=== PATIENT | female | born 1950 | race Caucasian/White ===

== ENCOUNTER → 2016-07-21 | Outpatient (CLI) | payer OTHER, BC ==
[~2016-07-21] MED LIST: CLR10 PO
[2016-07-21 08:30] VITALS: BP 123/78; PULSE 93; TEMP 36.6; O2SAT 99
--- NOTE | 2016-07-21 09:58 | Radiation Oncology Follow-Up ---
Radiation Oncology Follow-Up Date of Visit Jul 21, 2016. (Muna Beatty PA-C) Reason For Visit One-month follow-up (Muna Beatty PA-C) Radiation Completion Date Hypofractionated - 06/23/15 (Muna Beatty PA-C) Diagnosis (1) Rectal cancer Onset Date: 01/25/2016 Stage: IV Permanent Comment: STAGING: Rectum, adenocarcinoma, [id number], stage IV with oligometastatic disease to the liver TREATMENT: 1. Chemotherapy - 4 cycles FOLFOX - Dr. Garsia - Last Dose - 05/15/2016 2. Status post completion of hypo-fractionated radiation therapy. Completed received 2500 cGy in 5 fractions. 3. Status post low anterior resection and resection of hepatic metastatic lesions 06/30/2016 Stage ypT3 ypN0 M1 Last Edited By: Muna Beatty on Jul 21, 2016 09:38 ( Muna Beatty PA-C) History of Present Illness Ms. Olmedo is a 65-year-old female who presented to her PCP on January 02 for routine physical. At that time the patient stated that she had noted intermittent blood in her stools for a couple of years. Patient was scheduled to see Dr. Arellano on 01/25/2016. She performed a screening for a colorectal malignant neoplasm with a colonoscopy. Her perineal and digital rectal exam were unremarkable. There was normal sphincter tone and no palpable rectal lesions. A frond-like villous nonobstructing mass was noted extending from 5-15 cm proximal to the anus. The mass was partially circumferential (involving one half of the lumen circumference). Biopsies were taken. A retroflexed view of the distal rectum and anal verge was normal. This biopsy confirmed an invasive adenocarcinoma arising from a tubulovillous adenoma. Patient underwent a CT scan of the abdomen and pelvis 01/26/2016. In the liver there was an irregularly marginated hypodensity inferiorly in the right lobe really measuring 1.1 x 1.2 x 1.4 cm. This was of concern for a possible metastatic lesion. It could represent a small hemangioma. In the left rectosigmoid region a 2.9 x 4.1 cm mass extending craniocaudally for approximately 9 cm. The fat around this mass is mildly indurated with numerous diverticular present in the mid sigmoid colon. There were small prominent lymph nodes noted in the pelvis with 1 cm lymph node in the obturator region. Degenerative changes are noted in the spine and hips and the left iliac wing with an 8 mm sclerotic nodule of uncertain significance. CT scan of the chest on 02/10/2016. This showed nonspecific mild prominent right upper paratracheal mediastinal lymph node measuring 0.8 x 1.0 cm. Mildly prominent left axillary lymph nodes were nonspecific measuring up to 1.4 x 1.1 cm. In the spleen a hypo-attenuated lesions are noted. With nonspecific mildly prominent upper abdominal lymph nodes. There is a nonspecific focal sclerotic density in the T8 vertebral body otherwise unremarkable. Patient underwent a lower EUS on 02/11/2016. This confirmed a fungating and ulcerated partially obstructing lesion found in the rectosigmoid colon. The mass was partially circumferential involving two thirds of the lumen circumference. The mass measured 6 cm in length. No lymph nodes were seen in the perirectal region and in the left iliac region. A hypoechoic mass was found in the rectum at the junction of the rectum and the sigmoid colon. The mass was encountered at 8 cm from the anal verge. The mass was partially circumferential involving 60% of the lumen. The endosonographic borders were irregular. The mass measured 2.7 cm in maximal width and 1.1 cm in maximal thickness and was 6 cm in length. There was sonographic evidence suggesting breakthrough of the muscularis propria with invasion into the zen-rectal fat. This was therefore ultrasonically staged as auT3 N0 lesion. On February 13 patient underwent an MRI of the liver. The segment 5 liver lesions did not demonstrate typical features of a hemangioma and was worrisome for a neoplastic process. Further assessment was recommended. The splenic lesion seen on previous study was felt to be indeterminate with additional follow-up recommended. On 02/15/2016 patient underwent a bone scan without evidence of bony metastatic disease. The patient is scheduled for a PET/CT scan this afternoon and an MRI of the pelvis this coming Sunday. She is scheduled to see Dr. Dr. Bernardo Garsia this February 24. The patient is also been seen by Dr. Guthrie to discuss the surgical treatment options. The recommendation is for consideration of neoadjuvant chemoradiation at this time pending the results of the PET scan and MRI of the pelvis. She initially underwent systemic chemotherapy with FOLFOX for 4 cycles. She then underwent neoadjuvant radiation chemotherapy. Chemotherapy comprised of Xeloda. Radiation was given in a hypo-fractionated fashion. An was completed 2015. She received 5 fractions of therapy. (Muna Beatty PA-C) Interim History Following completion of the neoadjuvant radiation chemotherapy she will return to [facility] and underwent a low anterior resection. There was resection of the metastatic lesions to the liver. She also had a temporary colostomy. Since her surgery she is still recovering and doing well. She denies any abdominal discomfort. She does have a slight dysuria that occurs when she voids a small amount. She does not have dysuria on a regular basis. She denies any external perineal discomforts. She is seen Dr. Garsia today in follow- up to discuss her recommendations for postop chemotherapy. She is concerned about possible side effects to treatment. She is not having any problems with the ostomy appliance. (Muna Beatty PA-C) Allergies Coded Allergies: Penicillins (Verified Allergy, Unknown, Rash, 02/23/16) Home Medications Scheduled PRN Loratadine (Claritin), 10 MG PO DAILY PRN for Nasal Congestion Review of Systems Gastrointestinal: Symptoms: Indigestion GI Comments: Ileostomy - Indigestion since having gallbladder removed - getting better Oral: Symptoms: No Problems Respiratory: Symptoms: WNL Urinary: Symptoms: WNL Comments: Burning slightly - better since finishing antibiotic for UTI Skin: Symptoms: No Problems (Muna Beatty PA-C) Physical Exam Vital Signs Date Time Temp Pulse Resp B/P Pulse Ox O2 Delivery O2 Flow Rate FiO2 07/21/16 08:30 36.6 93 16 123/78 99 Fatigue: None General Appearance: no apparent distress Eyes: normal inspection, EOMI ENT: normal ENT inspection, hearing grossly normal Neck: no adenopathy, thyroid normal Respiratory/Chest: lungs clear, no respiratory distress, no accessory muscle use Cardiovascular: regular rate, rhythm, no gallop, no murmur Abdomen: non tender, soft, no organomegaly, + pertinent finding (ostomy in the right lower quadrant area. Well-healed incision. There are no signs of infection. Mild irritation of the skin at the clips sites.) Extremities: no pedal edema Neurologic/Psychiatric: no motor/sensory deficits, alert, normal mood/affect (Muna Beatty PA-C) Laboratory Studies Name: KOBE OLMEDO (AGE) Sex: 1950 (65) F Billing #: [id number] MRN (Client MRN): [id number] Order #: [id number] Client Information Specimen Information Location: DISCHARGE Collected Date: 06/30/2016 Copy To: Cheng Ozuna [facility] Accession Date: 06/30/2016 Client Case #: Outside Client.: Reported Date: 07/03/2016 Report Type: Final Report Submitting: - Alex Nettles MD Procedures/Addenda Present SURGICAL PATHOLOGY DIAGNOSIS Electronically Signed Out: Jovani Larios MD - [facility] [place] Lab A. Sigmoid colon and rectum, resection: Invasive moderately differentiated adenocarcinoma arising from a tubulovillous adenoma, with invasion into the serosa (T3N0M1). Surgical margins are negative for dysplasia or carcinoma. Thirteen benign lymph nodes (0/13). One tubular adenoma. B. Anastomotic rings: Portions of colon, no significant pathologic findings. C. Gallbladder, cholecystectomy: Chronic cholecystitis and cholelithiasis. No evidence of dysplasia or carcinoma. D. Segment 5 liver mass, resection: Metastatic colonic adenocarcinoma (1.7 cm in greatest dimension). Adenocarcinoma extends to within 2 mm of the inked surgical margin. Focal steatosis (5% to 10%) The inked surgical margin is negative for carcinoma. E. Segment 6-7 liver mass 2 lesions, resection: Metastatic colonic adenocarcinoma (1.2 x 0.9 cm and 1.2 x 1.1 cm in greatest dimension for each). The inked surgical margin is negative for adenocarcinoma. Focal steatosis (5% to 10%). F. Additional segment 6-7 liver mass, resection: Metastatic colonic adenocarcinoma (0.9 cm in greatest dimension). The inked surgical margin is positive for adenocarcinoma. Specimen: Sigmoid colon Rectum Procedure: Other: Sigmoid colon and portion of rectum Tumor Site: Rectum Tumor Location: Tumor Location- Tumor is located entirely above peritoneal reflection Tumor Size: Greatest dimension: 3.2 cm Additional dimensions: 2.0x0.5 cm Macroscopic Tumor Perforation: Not identified Histologic Type: Adenocarcinoma Histologic Grade: Low-grade (well-differentiated to moderately differentiated) Intratumoral Lymphocytic Response: Mild to moderate (0-2 per high-power [X400] field) Peritumor Lymphocytic Response: Mild to moderate Tumor Subtype and Differentiation: Mucinous tumor component: 0 % Microscopic Tumor Extension: Tumor invades through the muscularis propria into the subserosal adipose tissue or the nonperitonealized pericolic or perirectal soft tissues but does not extend to the serosal surface Margins: If all margins uninvolved by invasive carcinoma - Distance of invasive carcinoma from closest margin: 15 mm Distal Margin - Uninvolved by invasive carcinoma Circumferential (Radial) Margin - Uninvolved by invasive carcinoma Mesenteric Margin - Uninvolved by invasive carcinoma Treatment Effect: Not known Lymph-Vascular Invasion: Not identified Perineural Invasion: Not identified Tumor Deposits: Not identified Type of Polyp in which Invasive Carcinoma Arose: Tubulovillous adenoma Primary Tumor (pT): pT3: Tumor invades through the muscularis propria into the subserosa or the nonperitonealized pericolic or perirectal soft tissues Regional Lymph Nodes (pN): pN0: No regional lymph node metastasis Number of lymph nodes examined: 13 Number of lymph nodes involved: 0 Distant Metastasis (pM): Site(s): Liver Additional Pathologic Findings: Adenoma(s) [This staging is based on AJCC cancer staging manual, 7th edition] Table1. Summary of Immunostaining Results Marker/Tissue Adenocarcinoma Normal Tissue MLH-1 Positive Positive PMS-2 Positive Positive MSH-2 Positive Positive MSH-6 Positive Positive Result: Positive for KRAS gene mutation p.G12V (Muna Beatty PA-C) Assessment & Plan Plan: She has an appointment to see Dr. Garsia this afternoon. (Muna Beatty PA-C) Ms. Olmedo is a 65-year-old female with oligometastatic rectal cancer to the liver. She was treated with initially with chemotherapy and had a good response to treatment and elected for short course radiation therapy followed by a TME/resection of the liver metastasis which was recently completed on 06/30. Overall, her pathology results were favorable and she had a good response in the rectum; however, there was noted to be a microscopic positive margin from 1 of the liver metastases that was excised. I will plan to speak with both surgery and medical oncology to finalize a treatment plan for the patient given her previous history and pathologic results from her surgical resection. The patient will be seen Bernardo Garsia for medical oncology today to discuss further chemotherapy. The patient will come back in 6 months for follow -up evaluation unless there is a need for further adjuvant radiation therapy and this decision will be determined after I have a discussion with both her surgical oncologist and medical oncologist. The patient will call me with any further questions or concerns or if she would like to be seen earlier. I agree with note created by Muna Beatty PA-C. I reviewed the patient's chart and information with her. I have examined and evaluated the patient. I reviewed relevant clinical information and answered the patient's and/or family' s questions. (Veeral. Graves MD) Total Time In Follow-Up I spent 25 minutes speaking to the patient performing examination. I spent 15 minutes reviewing information and complaining this note. AMK (Muna Beatty PA-C) I spent 25 minutes examining and counseling the patient. (Veeral. Graves MD) Copy To Alex Nettles M.D.; Niles Stovall MD; Bernardo Garsia MD; Cheng Guthrie M.D.
== END | disposition home or self-care (01) ==
LOC: C.ONC 08:59
PROVIDERS: ATTEND Radiology Radiation Oncology
DX: Z08 Encounter for follow-up examination after completed treatment for malignant neoplasm (principal); Z92.3 Personal history of irradiation; Z85.048 Personal history of other malignant neoplasm of rectum, rectosigmoid junction, and anus

== ENCOUNTER → 2016-08-21 | Outpatient (CLI) | payer OTHER, BC ==
--- NOTE | 2016-08-21 16:37 | MAMMOGRAPHY REPORT ---
BILATERAL DIGITAL SCREENING MAMMOGRAM WITH CAD: 08/21/2016 CLINICAL HISTORY: Routine screening. Patient has no complaints. TECHNIQUE: Current study was also evaluated with a Computer Aided Detection (CAD) system. COMPARISON: Comparison is made to exams dated: 08/10/2014 mammogram, 08/07/2013 mammogram, 08/06/2012 jad mogram, 07/01/2009 mammogram, 08/28/2000 mammogram, and 08/18/2015 mammogram - [facility] nter. BREAST COMPOSITION: There are scattered areas of fibroglandular density in both breasts. FINDINGS: The parenchymal pattern is unchanged. No developing mass, architectural distortion or clu ster of suspicious microcalcifications is seen in either breast. IMPRESSION: ACR BI-RADS CATEGORY 2: BENIGN There is no mammographic evidence of malignancy. A 1 year screening mammogram is recommended. The p atient will receive written notification of the results. Approximately 10% of breast cancers are not detected with mammography. A negative mammographic repor t should not delay biopsy if a clinically suggestive mass is present. Kenyetta Bateman M.D. ay/:08/21/2016 15:24:24 Plastic Panel Installer: Caro Shetty [facility] letter sent: Normal 1/2 BI-RADS Code: ACR BI-RADS Category 2: Benign
== END | disposition home or self-care (01) ==
LOC: C.MAMM 10:45
PROVIDERS: ATTEND Obstetrics & Gynecology
DX: Z12.31 Encounter for screening mammogram for malignant neoplasm of breast (principal)

== ENCOUNTER → 2016-09-01 | Outpatient (CLI) | payer OTHER, BC ==
--- NOTE | 2016-09-01 11:26 | DIAGNOSTIC IMAGING REPORT ---
SINGLE CONTRAST GASTROGRAFIN ENEMA CLINICAL HISTORY: Rectal carcinoma status post resection with colocolonic anastomosis and diverting colostomy. Preoperative assessment for colostomy takedown. COMPARISON STUDY: Abdominal CT dated 01/26/2016. PROCEDURE: An abdominal equipment cleaner radiograph is performed. A rectal tube was placed. Gastrografin was then infused into the colon under gravity. Fluoroscopic images were acquired in multiple obliquities. Overhead radiographs were obtained both pre and post void. FINDINGS: An abdominal equipment cleaner radiograph shows a nonobstructed abdominal bowel gas pattern. A colostomy projects over the right lower quadrant. Suture material is noted in the right upper quadrant and pelvis. There are calcified pelvic phleboliths. No evidence of intraperitoneal free air is seen. The skeletal structures are osteopenic. Mild lumbosacral spondylosis is observed. The bony pelvis appears intact. On the enema images, there is foreshortening of the rectosigmoid colon consistent with surgical resection and anastomosis. There is no evidence of stricture/narrowing. Moderate diverticulosis is noted. There is no extraluminal contrast identified to suggest leakage. The remainder of the colon is normal in morphology. Fluoroscopy time: 0.5 minutes. IMPRESSION: 1. Findings are consistent with rectosigmoid resection with colocolonic anastomosis. There is no evidence of stricture or contrast leakage at the anastomotic site. 2. Moderate diverticulosis of the sigmoid colon is observed. Dictated: 09/01/2016 11:14 AM Transcribed: 09/01/2016 11:25 AM [facility] Electronically signed by: Saroj Louie M.D. 09/01/2016 11:29 AM Dictated Date/Time: 09/01/2016 11:14 AM
== END | disposition home or self-care (01) ==
LOC: C.RAD 10:07
PROVIDERS: ATTEND Colon & Rectal Surgery
DX: K57.30 Diverticulosis of large intestine without perforation or abscess without bleeding (principal); Z85.048 Personal history of other malignant neoplasm of rectum, rectosigmoid junction, and anus

== ENCOUNTER → 2017-01-18 | Outpatient (CLI) | payer OTHER, BC ==
[2017-01-18 13:45] VITALS: BP 151/83; PULSE 84; TEMP 36.9; O2SAT 97
--- NOTE | 2017-01-18 14:49 | Radiation Oncology Follow-Up ---
Radiation Oncology Follow-Up Date of Visit Jan 18, 2017. Reason For Visit 6 month follow-up Radiation Completion Date Hypo - 06/23/15 Diagnosis (1) Rectal cancer Status: Resolved Onset Date: 01/25/2016 Histology Subtype: adenocarcinoma Stage: IV Permanent Comment: STAGING: Rectum, adenocarcinoma, [id number], stage IV with oligometastatic disease to the liver TREATMENT: 1. Chemotherapy - 4 cycles FOLFOX - Dr. Garsia - Last Dose - 05/15/2016 2. Status post completion of hypo-fractionated radiation therapy. Completed received 2500 cGy in 5 fractions. 3. Status post low anterior resection and resection of hepatic metastatic lesions 06/30/2016 Stage ypT3 ypN0 M1 4. Status post 4 cycles of FOLFIRI completed 12/04/2016 4. Status post ostomy reversal. Last Edited By: Muna Beatty on Jan 18, 2017 14:48 History of Present Illness Ms. Grove is a 66-year-old female who presented to her PCP on January 02 for routine physical. At that time the patient stated that she had noted intermittent blood in her stools for a couple of years. Patient was scheduled to see Dr. Arellano on 01/25/2016. She performed a screening for a colorectal malignant neoplasm with a colonoscopy. Her perineal and digital rectal exam were unremarkable. There was normal sphincter tone and no palpable rectal lesions. A frond-like villous nonobstructing mass was noted extending from 5-15 cm proximal to the anus. The mass was partially circumferential (involving one half of the lumen circumference). Biopsies were taken. A retroflexed view of the distal rectum and anal verge was normal. This biopsy confirmed an invasive adenocarcinoma arising from a tubulovillous adenoma. Patient underwent a CT scan of the abdomen and pelvis 01/26/2016. In the liver there was an irregularly marginated hypodensity inferiorly in the right lobe really measuring 1.1 x 1.2 x 1.4 cm. This was of concern for a possible metastatic lesion. It could represent a small hemangioma. In the left rectosigmoid region a 2.9 x 4.1 cm mass extending craniocaudally for approximately 9 cm. The fat around this mass is mildly indurated with numerous diverticular present in the mid sigmoid colon. There were small prominent lymph nodes noted in the pelvis with 1 cm lymph node in the obturator region. Degenerative changes are noted in the spine and hips and the left iliac wing with an 8 mm sclerotic nodule of uncertain significance. CT scan of the chest on 02/10/2016. This showed nonspecific mild prominent right upper paratracheal mediastinal lymph node measuring 0.8 x 1.0 cm. Mildly prominent left axillary lymph nodes were nonspecific measuring up to 1.4 x 1.1 cm. In the spleen a hypo-attenuated lesions are noted. With nonspecific mildly prominent upper abdominal lymph nodes. There is a nonspecific focal sclerotic density in the T8 vertebral body otherwise unremarkable. Patient underwent a lower EUS on 02/11/2016. This confirmed a fungating and ulcerated partially obstructing lesion found in the rectosigmoid colon. The mass was partially circumferential involving two thirds of the lumen circumference. The mass measured 6 cm in length. No lymph nodes were seen in the perirectal region and in the left iliac region. A hypoechoic mass was found in the rectum at the junction of the rectum and the sigmoid colon. The mass was encountered at 8 cm from the anal verge. The mass was partially circumferential involving 60% of the lumen. The endosonographic borders were irregular. The mass measured 2.7 cm in maximal width and 1.1 cm in maximal thickness and was 6 cm in length. There was sonographic evidence suggesting breakthrough of the muscularis propria with invasion into the zen-rectal fat. This was therefore ultrasonically staged as auT3 N0 lesion. On February 13 patient underwent an MRI of the liver. The segment 5 liver lesions did not demonstrate typical features of a hemangioma and was worrisome for a neoplastic process. Further assessment was recommended. The splenic lesion seen on previous study was felt to be indeterminate with additional follow-up recommended. On 02/15/2016 patient underwent a bone scan without evidence of bony metastatic disease. The patient is scheduled for a PET/CT scan this afternoon and an MRI of the pelvis this coming Sunday. She is scheduled to see Dr. Dr. Bernardo Garsia this February 24. The patient is also been seen by Dr. Guthrie to discuss the surgical treatment options. The recommendation is for consideration of neoadjuvant chemoradiation at this time pending the results of the PET scan and MRI of the pelvis. She initially underwent systemic chemotherapy with FOLFOX for 4 cycles. She then underwent neoadjuvant radiation chemotherapy. Chemotherapy comprised of Xeloda. Radiation was given in a hypo-fractionated fashion. An was completed 2015. She received 5 fractions of therapy. Interim History She has been doing well over the past 6 months. She underwent the ostomy reversal. She denied difficulty with the procedure. She does note that her bowels seem to be of a "sticky consistency". She notices that at times she will have a bowel movement with urination and did not note that she was having a bowel movement. This is neither constipation or diarrhea. She has no difficulty with nausea or vomiting. She completed 4 cycles of full ferry. It was suggested that she have 8 but due to side effects she completed 4 cycles. She is followed by her colorectal surgeon. It was recommended that she have a colonoscopy 1 year following the procedure. She has had recheck laboratory studies through Dr. Graves's office in medical oncology. Allergies Coded Allergies: Penicillins (Verified Allergy, Unknown, Rash, 02/23/16) Home Medications Scheduled PRN Loratadine (Claritin), 10 MG PO DAILY PRN for Nasal Congestion Review of Systems Gastrointestinal: Symptoms: WNL GI Comments: Bowel movements are not predictable Oral: Symptoms: No Problems Respiratory: Symptoms: WNL Urinary: Symptoms: WNL Comments: Burning slightly - better since finishing antibiotic for UTI Skin: Symptoms: No Problems Physical Exam Vital Signs Date Time Temp Pulse Resp B/P (MAP) Pulse Ox O2 Delivery O2 Flow Rate FiO2 01/18/17 13:45 36.9 84 16 151/83 97 Fatigue: None General Appearance: no apparent distress Eyes: normal inspection, EOMI ENT: normal ENT inspection, hearing grossly normal Neck: no adenopathy, thyroid normal Respiratory/Chest: lungs clear, no respiratory distress, no accessory muscle use Cardiovascular: regular rate, rhythm, no gallop, no murmur Abdomen: non tender, soft, no organomegaly Extremities: no pedal edema Neurologic/Psychiatric: no motor/sensory deficits, alert, normal mood/affect Skin: warm/dry Lymphatic: no adenopathy Assessment & Plan Plan: She'll be seeing Dr. Graves in medical oncology in March. Recheck labs and scanning per his recommendations. The colorectal surgery recommended a colonoscopy in one year. I suggested the addition of probiotic to help with the consistency of the bowel. She can eat yogurt or activitia. I also suggested increasing fiber in her diet. She did not care for Metamucil or Citrucel. I suggested that she try fiber wafers or cookies. We also discussed Kegel exercises to help improve tone. We asked her to return to our office in 1 year. Total Time In Follow-Up I spent 20 minutes speaking to the patient performing examination. I spent 15 minutes reviewing information in completing this note. [place] Copy To Alex Nettles M.D.; Niles Stovall MD; Cheng Guthrie M.D.; Waldemar Graves M.D.
== END | disposition home or self-care (01) ==
LOC: C.ONC 13:40
PROVIDERS: ATTEND Physician Assistant Medical
DX: Z08 Encounter for follow-up examination after completed treatment for malignant neoplasm (principal); Z92.3 Personal history of irradiation; Z85.048 Personal history of other malignant neoplasm of rectum, rectosigmoid junction, and anus

== ENCOUNTER → 2017-08-22 | Outpatient (CLI) | payer OTHER, BC ==
--- NOTE | 2017-08-22 14:13 | MAMMOGRAPHY REPORT ---
BILATERAL DIGITAL SCREENING MAMMOGRAM TOMOSYNTHESIS WITH CAD: 08/22/2017 CLINICAL HISTORY: Routine screening. Patient has no complaints. TECHNIQUE: Breast tomosynthesis in addition to standard 2D mammography was performed. Current study was also evaluated with a Computer Aided Detection (CAD) system. COMPARISON: Comparison is made to exams dated: 08/18/2015 mammogram, 08/21/2016 mammogram, 08/10/2014 ma mmogram, 08/06/2012 mammogram, 08/07/2013 mammogram, and 07/05/2011 mammogram - [facility] BREAST COMPOSITION: There are scattered areas of fibroglandular density in both breasts. FINDINGS: No suspicious masses, calcifications, or areas of architectural distortion are noted in ei ther breast. There has been no significant interval change compared to prior exams. IMPRESSION: ACR BI-RADS CATEGORY 1: NEGATIVE There is no mammographic evidence of malignancy. A 1 year screening mammogram is recommended. The pa tient will receive written notification of the results. Approximately 10% of breast cancers are not detected with mammography. A negative mammographic report should not delay biopsy if a clinically suggestive mass is present. Yas Villafuerte M.D. ah/:08/22/2017 11:29:14 Fixed Wing Pilot: Caro FOUNTAIN(Mary)(M), [facility] letter sent: Normal 1/2 BI-RADS Code: ACR BI-RADS Category 1: Negative
== END | disposition home or self-care (01) ==
LOC: C.MAMM 09:55
PROVIDERS: ATTEND Obstetrics & Gynecology
DX: Z12.31 Encounter for screening mammogram for malignant neoplasm of breast (principal)

== ENCOUNTER 2019-10-30 05:07 | Inpatient (IN) ==
--- OUTSIDE RECORDS SUMMARY | 2019-10-30 05:09 | External Medical Summary | Continuity of Care Document ---
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 Refills: 0 Procedures History of Section Status: Comp leted History of Tonsillectomy With Adenoidectomy Status: Completed History of Dilation And Curettage Status : Completed History of Fiberoptic Examinations Hysteroscopy Status: Completed History of Laparoscopy (Diagnostic) Gynecologic With Biopsy Status: Completed Immunizations Immunizations not documented Family History Mother Family history of Asthma (V17.5) Status: Active Grandmother Family history of Asthma (V17.5) Status: Active Social History - Smoking Status Never smoked tobacco Plan of Treatment Planned Observations Planned Goals not documented Results No Known Results Results not documented
--- OUTSIDE RECORDS SUMMARY | 2019-10-30 05:10 | External Medical Summary | Continuity of Care Document ---
:1950 Author Name Con Singh, Provider Address Unavailable Unavailable , Care Team Providers Name Role Phone Unavailable Unavailable Unavailable Problems Asymptomatic Postmenopausal Status (V49.81) Encounter for routine gynecological examination (V72.31) (Z0 1.419) Earache on left (388.70) (H92.02) Pulsatile tinnitus [...]
[2019-10-30] MEDS ORDERED: ONDANSETRON INJ 2 MG/ML 2 ML VIAL IV STA ×2 (05:27→06:10)
[2019-10-30] MEDS ORDERED: MoRPHine SULFATE 10 MG/ML CARP/VIAL IV STA (05:27)
[2019-10-30] MEDS ORDERED: SODIUM CHLORIDE 0.9% 1000ML 1,000 ML IV ONE (05:27)
[2019-10-30] MEDS ORDERED: MoRPHine SULFATE 2 MG/ML CARP ONE (05:30)
[2019-10-30] MEDS ORDERED: MoRPHine SULFATE 4 MG/ML 1 ML CARP\\VIAL ONE (05:30)
--- NOTE | 2019-10-30 05:33 | Emergency Department Note ---
History of Present Illness General Chief complaint: Abdominal Pain Stated complaint: STOMACH CRAMPS,VOMITING Time Seen by Provider: 10/30/19 05:16 Source: patient Mode of arrival: ambulatory Limitations: no limitations History of Present Illness Maximum Pain Intensity: 9 This patient is a 69-year-old female who presents to the emergency department for evaluation of abdominal pain and vomiting. Patient reports that yesterday morning, she started with some mild abdominal cramping. She states that she was able to eat without any difficulty and tried some Imodium which did not help. She states that throughout the day, her symptoms worsened and the pain became more severe. She reports that last night before bed, she started vomiting and had multiple episodes of vomiting throughout the night. She states that despite the vomiting, she is still having severe abdominal cramping. She states the pain is across the center of her abdomen and rates her discomfort a 9/10. She states that nothing makes the pain better or worse. She has tried ibuprofen and Imodium without any change in her symptoms. She does report she is currently taking an antibiotic for dental infection. Her last bowel movement was yes terday morning. She denies any changes in her bowel movements. She denies any urinary symptoms or fevers. Patient has a history of colorectal cancer and had surgery to remove this about 3 years ago. She had an ostomy which was later reversed. She states that she has been followed for this and has had no signs of recurrent malignancy. Home Medications Home Medications Medication Instructions Recorded Confirmed Type Antibiotic Drug 1 cap PO TID 10/30/19 10/30/19 History Allergies Allergy/AdvReac Type Severity Reaction Status Date / Time Penicillins Allergy Unknown Rash Verified 10/30/19 05:33 Past Med/Surg History Medical History Rectal cancer (Resolved 01/25/16) "STAGING: Rectum, adenocarcinoma, [id number], stage IV with oligometastatic dis ease to the liver TREATMENT: 1. Chemotherapy - 4 cycles FOLFOX - Dr. Garsia - Last Dose - 05/15/2016 2. Status post completion of hypo-fractionated radiation therapy. Completed 06/23/2015 received 2500 cGy in 5 fractions. 3. Status post low anterior resection and resection of hepatic metastatic lesions 06/30/2016 Stage ypT3 ypN0 M1 4. Status post 4 cycles of FOLFIRI completed 12/04/2016 4. Status post ostomy reversal." On 07/21/16 09:38 Muna Beatty wrote "STAGING: Rectum, adenocarcinoma, [id number], stage IV with oligometastatic disease to the liver TREATMENT: 1. Chemotherapy - 4 cycles FOLFOX - Dr. Garsia - Last Dose - 05/15/2016 2. Status post completion of hypo-fractionated radiation therapy. Completed 06/23/2015 received 2500 cGy in 5 fractions. 3. Status post low anterior resection and resection of hepatic metastatic lesions 06/30/2016 Stage ypT3 ypN0 M1" On 06/30/16 11:59 Muna Beatty wrote "STAGING: Rectum, adenocarcinoma, [id number], stage IV with oligometastatic disease to the liver TREATMENT: 1. Chemotherapy - 4 cycles FOLFOX - Dr. Garsia - Last Dose - 05/15/2016 2. Status post completion of hypo-fractionated radiation therapy. Completed 06/23/2015 received 2500 cGy in 5 fractions." On 06/09/16 14:44 Haris Star wrote "STAGING: Rectum, adenocarcinoma, [id number], stage IV with oligometastatic disease to the liver TREATMENT: 1. Chemotherapy - 4 cycles FOLFOX - Dr. Garsia - Dose - 05/15/2016 " Surgical History History of section S/P colon resection Social History Preferred Language: Croatian Communication Ability: Effective Beliefs That Will Affect Care: None Current Living Situation: Spouse Other Information That Helps Us Care for You: No Feels Safe at Home: Yes Safety Concerns: Feels Safe At This Time Smoking Status: Never smoker Hx Alcohol Use: Yes Alcohol type: wine Hx Substance Use: No Review of Systems A total of 10 systems reviewed and were otherwise negative Physical Exam Vital Signs Vital Signs - 24 hr 10/30/19 05:10 10/30/19 05:33 10/30/19 05:56 Temperature 36.6 C Temperature Source Oral Pulse Rate 69 Pulse Rate [Finger] 68 Respiratory Rate 18 14 Respiratory Effort / Characteristics Non-Labored Non-Labored Spontaneous Respiratory Depth Normal Normal Respiratory Pattern Blood Pressure 183/79 H Blood Pressure [Right Arm] 177/84 H Blood Pressure Mean 113 Blood Pressure Mean [Right Arm] 115 Pulse Oximetry 100 98 Oxygen Delivery Method Room Air Room Air Room Air Sepsis Recent Fever Within 48 Hours No Sepsis New/Unexplained Change in Mental Status No Sepsis Action Taken by Nursing No Action Required 10/30/19 07:22 Temperature Temperature Source Pulse Rate Pulse Rate [Finger] 106 H Respiratory Rate 20 Respiratory Effort / Characteristics Non-Labored Spontaneous Respiratory Depth Normal Respiratory Pattern Regular Blood Pressure Blood Pressure [Right Arm] 165/97 H Blood Pressure Mean Blood Pressure Mean [Right Arm] 119 Pulse Oximetry 97 Oxygen Delivery Method Room Air Sepsis Recent Fever Within 48 Hours Sepsis New/Unexplained Change in Mental Status Sepsis Action Taken by Nursing VITALS: Vitals are noted on the nurse's note and reviewed by myself. GENERAL: This is a 69-year-old female, lying supine in bed, uncomfortable appearing, well-developed well-nourished. SKIN: The skin was without rashes. Skin is warm and dry. EARS: External auditory canals clear, tympanic membranes pearly garsia without erythema or effusion bilaterally. EYES: Pupils equal round and reactive to light and accommodation. No scleral icterus. MOUTH: Mucous membranes moist. Tonsils are not enlarged. Pharynx without erythema or exudate. NECK: Supple without nuchal rigidity. No lymphadenopathy. HEART: Regular rate and rhythm without murmurs gallops or rubs. LUNGS: Clear to auscultation bilaterally without wheezes, rales or rhonchi. No retractions or accessory muscle use. ABDOMEN: Positive bowel sounds x 4. Surgical scars noted to the midline both above and below the umbilicus. Additional surgical scar noted in the right lower quadrant. Abdomen is soft and nondistended. There is moderate tenderness to palpation throughout the mid abdomen. No guarding or rebound tenderness. NEURO: Patient was alert and oriented to person place and time. Course Reevaluation(s) Reevaluation #1: Patient was reevaluated and feels quite a bit better after the morphine and Zofran, but still has some slight nausea. An additional dose of Zofran was ordered. Reevaluation #2: Patient was reevaluated and findings discussed. NG tube was ordered and will be placed by nursing staff. Reevaluation #3: NG tube was placed and tolerated well by patient. Consultations Consultation #1: Dr. Matta - general surgery Dr. Matta recommended hospitalist admission and will consult on the patient. Administered Medications Ioversol (Optiray 320 100ml) 100 ml IV ONCE PRN PRN Reason: Interaction Checking Stop: 11/03/19 06:33 Last Admin: 10/30/19 06:35 Dose: 93 ml Documented by: [id number] Discontinued Medications Sodium Chloride (Nss 1000ml) 1,000 mls @ 999 mls/hr IV .Q1H1M ONE Stop: 10/30/19 06:27 Last Infusion: 10/30/19 07:04 Dose: 0 mls/hr Documented by: [id number] Admin: 10/30/19 05:53 Dose: 999 mls/hr Documented by: [id number] Morphine Sulfate (Morphine Sulfate) 6 mg IV NOW STA Stop: 10/30/19 05:28 Last Admin: 10/30/19 05:55 Dose: 6 mg Documented by: [id number] Morphine Sulfate (Morphine Sulfate) Confirm Administered Dose 4 mg .ROUTE .STK- MED ONE Stop: 10/30/19 05:31 Last Admin: 10/30/19 05:55 Dose: Not Given Documented by: [id number] Morphine Sulfate (Morphine Sulfate) Confirm Administered Dose 2 mg .ROUTE .STK- MED ONE Stop: 10/30/19 05:31 Last Admin: 10/30/19 05:55 Dose: Not Given Documented by: [id number] Ondansetron HCl (Zofran) 4 mg IV NOW STA Stop: 10/30/19 05:28 Last Admin: 10/30/19 05:53 Dose: 4 mg Documented by: [id number] Ondansetron HCl (Zofran) 4 mg IV NOW STA Stop: 10/30/19 06:11 Last Admin: 10/30/19 06:14 Dose: 4 mg Documented by: [id number] Medical Decision Making Differential Diagnosis Appendicitis, ovarian cyst, ovarian torsion, ectopic , TOA, PID, infections, diverticulitis, UTI, obstruction, mesenteric ischemia, aortic pathology, inflammatory bowel disease, renal colic, PUD, pancreatitis, biliary pathology, hernia, volvulus, constipation, as well as other pathologies. Medical Records Attestation: I reviewed the patient's medical records. Home Medications Current Medication List: was personally reviewed by me Laboratory Data Attestation: I reviewed the patient's lab results. Result diagrams: 10/30/19 05:51 10/30/19 05:51 Lab Results 10/30/19 10/30/19 10/30/19 Range/Units 05:20 05:51 05:51 WBC 16.06 H (4.8-10.8) K/uL RBC 5.32 (4.2-5.4) M/uL Hgb 16.0 (12.0-16.0) g/dL Hct 47.7 H (37-47) % MCV 89.7 (80-100) fL MCH 30.1 (25-34) pg MCHC 33.5 (32-36) g/dL RDW Std Deviation 42.9 (36.4-46.3) fL RDW Coeff of Joel 13.1 (11.5-14.5) % Plt Count 192 (130-400) K/uL MPV 10.6 H (7.4-10.4) fL Immature Gran % (Auto) 0.2 % Neut % (Auto) 92.0 % Lymph % (Auto) 4.9 % [place] % (Auto) 2.7 % Eos % (Auto) 0.1 % Baso % (Auto) 0.1 % Immature Gran # (Auto) 0.03 H (0.00-0.02) K/uL Neut # (Auto) 14.78 H (1.4-6.5) K/uL Lymph # (Auto) 0.79 L (1.2-3.4) K/uL [place] # (Auto) 0.44 (0.11-0.59) K/uL Eos # (Auto) 0.01 (0-0.5) K/uL Baso # (Auto) 0.01 (0-0.2) K/uL Sodium 136 (136-145) mmol/L Potassium 3.6 (3.5-5.1) mmol/L Chloride 101 (98-107) mmol/L Carbon Dioxide 25 (21-32) mmol/L Anion Gap 10.0 (3-11) BUN 20 H (7-18) mg/dl Creatinine 0.95 (0.6-1.2) mg/dl Est Cr Clr Drug Dosing 60.4 ml/min Est GFR ( Amer) 70.8 Est GFR (Non-Af Amer) 61.1 BUN/Creatinine Ratio 21.4 H (10-20) Glucose 179 H (70-99) mg/dl Calcium 9.4 (8.5-10.1) mg/dl Total Bilirubin 0.9 (0.2-1) mg/dl AST 39 H (15-37) U/L ALT 44 (12-78) U/L Alkaline Phosphatase 90 (45-117) U/L Total Protein 8.8 H (6.4-8.2) gm/dl Albumin 4.2 (3.4-5.0) gm/dl Globulin 4.6 H (2.5-4.0) gm/dl Albumin/Globulin Ratio 0.9 (0.9-2) Lipase 45 L (73-393) U/L Urine Color Dark Yellow Urine Appearance Cloudy A (Clear) Urine pH 5.5 (4.5-7.5) Ur Specific [place] 1.034 H (1.000-1.030) Urine Protein 2+ H (Negative) Urine Glucose (UA) 2+ H (Negative) Urine Ketones 3+ H (Negative) Urine Blood 3+ H (Negative) Urine Nitrite Negative (Negative) Urine Bilirubin Negative (Negative) Urine Urobilinogen Negative (Negative) Ur Leukocyte Esterase Negative (Negative) Urine WBC (Auto) 1-5 (0-5) /hpf Urine RBC (Auto) >30 H (0-4) /hpf U Hyaline Cast (Auto) 1-5 (0-5) /lpf U Epithel Cells (Auto) >30 H (0-5) /lpf Urine Bacteria (Auto) Negative (Negative) Imaging Data Attestation: I personally reviewed and interpreted this imaging study as follows: Radiologist's Impression: CT OF THE ABDOMEN AND PELVIS WITH CONTRAST CLINICAL HISTORY: Abdominal pain and vomiting. History of colon cancer. COMPARISON STUDY: MRI of the abdomen February 14, 2016. PET/CT February 23, 2016. TECHNIQUE: Following IV administration of 93 mL of Optiray-320, axial images of the abdomen and pelvis were obtained from the lung bases to the proximal femurs. Images were reviewed in the axial, sagittal, and coronal planes. IV contrast was administered without complication. Automated exposure control was utilized for the study. A dose lowering technique was utilized adhering to the principles of ALARA. CT DOSE: 940.92 mGycm FINDINGS: Lung bases are unremarkable. No pneumatosis, free air or portal venous gas is present. Partial right hepatectomy is noted. Note is made of a 3.5 x 3.1 cm right hepatic dome mixed attenuation lesion. This is probably hyperdense and contains calcifications. A small hiatal hernia is present. The spleen, adrenal glands, kidneys and pancreas are unremarkable. Slight prominence of the common bile duct is likely related to cholecystectomy. There is no peripancreatic infiltration. There is no hydronephrosis. The majority of the small bowel is moderately dilated and fluid-filled. There is a transition point within the right lower quadrant, within the distal ileum shown on axial image 335 of 436. There is stool within the upstream small bowel. This is adjacent to a small bowel anastomosis. There is a small amount of ascites. There is mild mesenteric infiltration. The terminal ileum is decompressed. A few prominent ileocolic lymph nodes are noted. These measure up to 7 mm in short axis diameter. No suspicious osseous lesions are present. Postoperative findings at the rectosigmoid junction are noted. IMPRESSION: 1. Findings consistent with a moderate grade small bowel obstruction with transition point within the right lower quadrant, within the distal ileum. Transition point in close proximity to an anastomosis. This may reflect an anastomotic stricture. Small amount of ascites and mild mesenteric infiltration. Mild gastric distention with a small hiatal hernia. 2. 3.5 x 3.1 cm right hepatic dome partially calcified lesion. This may reflect a treated metastasis and correlation with more recent post therapy imaging is recommended. In the absence of recent prior exams, short-term imaging follow-up is recommended. A few prominent ileocolic lymph nodes can be assessed on follow- up imaging. Blood Pressure Blood Pressure Findings: Elevated blood pressure Blood Pressure Disposition: further management by hospitalist BRANDYN Banks Continuous equipment monitor phototypesetting: Order was placed for continuous equipment monitor phototypesetting. Patient was placed on the equipment monitor phototypesetting. Patient was noted to be in normal sinus rhythm at an initial rate of 69 bpm. The patient is a 69-year-old female who presents today complaining of abdominal pain and vomiting. Labs revealed a leukocytosis of 16,000, no anemia or concerning electrolyte abnormality. Glucose is elevated, likely stress related. CT of the abdomen/pelvis was performed and showed a small bowel obstruction with transition point in the right lower quadrant. There is a right hepatic dome lesion which is partially calcified and according to the patient's history, this is likely a treated metastasis. Patient was given IV morphine, fluids and Zofran with good improvement of her symptoms. NG tube was placed by nursing staff. General surgery was consulted. They recommended [facility] Impression & Plan Small bowel obstruction Discharge Plan Visit Data Chief Complaint: Abdominal Pain Stated Complaint: STOMACH CRAMPS,VOMITING ED Provider: Vandana Clarke ED Midlevel Provider: Najma Medley Discharge Problem: Small bowel obstruction Forms Stand Alone Forms: [facility] Prescriptions Prescriptions: No Action Antibiotic Drug 1 cap PO TID RF: 0
[2019-10-30 05:42] LABS: Appearance Urine Cloudy (Clear); Bacteria Urine Automated Negative (Negative); Blood Urine 3+ (Negative); Color Urine Dark Yellow; Epithelial Cell Urine Auto >30 /lpf (0-5); Glucose Urine UA 2+ (Negative); Ketones Urine 3+ (Negative); Leukocyte Esterase Urine Negative (Negative); Nitrite Urine Negative (Negative); Protein Urine 2+ (Negative); RBC Urine Automated >30 /hpf (0-4); Specific Gravity Urine 1.034 (1.000-1.030); Urobilinogen Urine Negative (Negative); pH Urine 5.5 (4.5-7.5)
[2019-10-30 05:46] LABS: Bilirubin Urine Negative (Negative); Ictotest Urine Negative (Negative)
[2019-10-30 05:59] LABS: Basophils # (auto) 0.01 K/uL (0-0.2); Basophils % (auto) 0.1 %; Eosinophils # (auto) 0.01 K/uL (0-0.5); Eosinophils % (auto) 0.1 %; Hematocrit (blood only) 47.7 % (37-47); Immature Granulocytes # (auto) 0.03 K/uL (0.00-0.02); Immature Granulocytes % (auto) 0.2 %; Lymphocytes # (auto) 0.79 K/uL (1.2-3.4); Lymphocytes % (auto) 4.9 %; Mean Corpuscular Hemoglobin 30.1 pg (25-34); Mean Corpuscular Hgb Conc 33.5 g/dL (32-36); Mean Corpuscular Volume 89.7 fL (80-100); Mean Platelet Volume 10.6 fL (7.4-10.4); Monocytes # (auto) 0.44 K/uL (0.11-0.59); Monocytes % (auto) 2.7 %; Neutrophils # (auto) 14.78 K/uL (1.4-6.5); Platelet Count 192 K/uL (130-400); RDW Coefficient of Variation 13.1 % (11.5-14.5); RDW Standard Deviation 42.9 fL (36.4-46.3); Red Blood Count 5.32 M/uL (4.2-5.4); White Blood Count 16.06 K/uL (4.8-10.8)
[2019-10-30 06:16] LABS: Albumin Level 4.2 gm/dl (3.4-5.0); BUN Creatinine Ratio 21.4 (10-20); Calcium 9.4 mg/dl (8.5-10.1); Creatinine Clr Calc Pharmacy 60.4 ml/min; Est GFR (African American) 70.8; Est GFR (Non-African American) 61.1; Potassium 3.6 mmol/L (3.5-5.1)
[2019-10-30 06:18] LABS: Albumin Globulin Ratio 0.9 (0.9-2); Bilirubin,Total 0.9 mg/dl (0.2-1); Globulin 4.6 gm/dl (2.5-4.0); Total Protein 8.8 gm/dl (6.4-8.2)
[2019-10-30] MEDS ORDERED: IOVERSOL 100ml IV PRN (06:34)
--- NOTE | 2019-10-30 06:49 | CT Scan Report ---
CT OF THE ABDOMEN AND PELVIS WITH CONTRAST CLINICAL HISTORY: Abdominal pain and vomiting. History of colon cancer. COMPARISON STUDY: MRI of the abdomen February 14, 2016. PET/CT February 23, 2016. TECHNIQUE: Following IV administration of 93 mL of Optiray-320, axial images of the abdomen and pelvi s were obtained from the lung bases to the proximal femurs. Images were reviewed in the axial, sagitt al, and coronal planes. IV contrast was administered without complication. Automated exposure contro l was utilized for the study. A dose lowering technique was utilized adhering to the principles of A HUBERT. CT DOSE: 940.92 mGycm FINDINGS: Lung bases are unremarkable. No pneumatosis, free air or portal venous gas is present. Part ial right hepatectomy is noted. Note is made of a 3.5 x 3.1 cm right hepatic dome mixed attenuation l esion. This is probably hyperdense and contains calcifications. A small hiatal hernia is present. The spleen, adrenal glands, kidneys and pancreas are unremarkable. Slight prominence of the common bile duct is likely related to cholecystectomy. There is no peripancreatic infiltration. There is no hydro nephrosis. The majority of the small bowel is moderately dilated and fluid-filled. There is a transit ion point within the right lower quadrant, within the distal ileum shown on axial image 335 of 436. T here is stool within the upstream small bowel. This is adjacent to a small bowel anastomosis. There i s a small amount of ascites. There is mild mesenteric infiltration. The terminal ileum is decompresse d. A few prominent ileocolic lymph nodes are noted. These measure up to 7 mm in short axis diameter. No suspicious osseous lesions are present. Postoperative findings at the rectosigmoid junction are no yelena. IMPRESSION: 1. Findings consistent with a moderate grade small bowel obstruction with transition point within the right lower quadrant, within the distal ileum. Transition point in close proximity to an anastomosis . This may reflect an anastomotic stricture. Small amount of ascites and mild mesenteric infiltration . Mild gastric distention with a small hiatal hernia. 2. 3.5 x 3.1 cm right hepatic dome partially calcified lesion. This may reflect a treated metastasis and correlation with more recent post therapy imaging is recommended. In the absence of recent prior exams, short-term imaging follow-up is recommended. A few prominent ileocolic lymph nodes can be asse ssed on follow-up imaging. ACT 112: Negative or not required by law. Electronically signed by: Duc Mao M.D. 10/30/2019 6:48 AM
--- NOTE | 2019-10-30 07:04 | Emergency Department Note ---
ED Visit Note I saw this patient in conjunction with Najma Medley PA-C. The patient has a history of rectal carcinoma with resection. She presents to the emergency department with significant abdominal pain. CT scan shows evidence of a small bowel obstruction. On physical exam, the patient is now much more comfortable although abdomen is still significantly distended. She has moderate tenderness with palpation. Nursing staff is preparing to place an NG tube. .
--- NOTE | 2019-10-30 07:50 | XRay Report ---
XR KUB/Abdomen 1 view CLINICAL HISTORY: check ng placement tube position COMPARISON STUDY: No previous studies for comparison. FINDINGS: Nasogastric tube within the gastric fundus. Nonobstructive bowel pattern. Contrast-filled u rinary tracts from prior contrast study. IMPRESSION: Nasogastric tube within the gastric fundus. ACT 112: Negative or not required by law. The above report was generated using voice recognition software. It may contain grammatical, syntax or spelling errors. Electronically signed by: Chad Bo M.D. 10/30/2019 7:49 AM
--- NOTE | 2019-10-30 08:37 | History & Physical Report ---
Date of Service October 30, 2019 Assessment & Plan (1) Small bowel obstruction: Pt is 69 y/o F with PMH colon CA with mets to liver s/p chemo, radiation and s/p colon resection in 2017 presented to ER with c/o abdominal pain started yesterday with vomiting. Denies fever/chills, diarrhea, constipation In ER pt afebrile, P: 69, R: 18, BP: 183/79, 100% on RA. WBC: 16 CT ABD/PELVIS: 1. Findings consistent with a moderate grade small bowel obstruction with transition point within the right lower quadrant, within the distal ileum. Transition point in close proximity to an anastomosis. This may reflect an anastomotic stricture. Small amount of ascites and mild mesenteric infiltration. Mild gastric distention with a small hiatal hernia. 2. 3.5 x 3.1 cm right hepatic dome partially calcified lesion. This may reflect a treated metastasis and correlation with more recent post therapy imaging is recommended. In the absence of recent prior exams, short-term imaging follow-up is recommended. A few prominent ileocolic lymph nodes can be assessed on follow- up imaging. -In ER given Zofran x 2 doses, morphine, 1L NSS -NG tube place and draining -NPO -IVF -Initial glucose: 179, recheck glucose this afternoon to determine if need to switch to IVF with D5W -Continue NG tube with low intermittent suction -Antiemetics and pain medicine prn -General surgery consult, Dr Matta aware -CBC, BMP in am (2) Rectal cancer: Stage IV cancer Hx colon CA with mets to liver s/p chemo, radiation and s/p colon resection in 2017. H/O liver partial lobectomy in 2017. [place] [facility] [place]/pelvis with 3.5 x 3.1 cm right hepatic dome partially calcified lesion. Hepatic dome lesion was seen on outpatient CT scan in [address] Graves DVT Prophylaxis -SCDs for now in case of procedure Full Code as per discussion with pt Follows with Dr Stovall for routine care Pt was seen and care coordinated with Dr Tracey. See addendum History of Present Illness Chief Complaint: Abdominal pain Primary Care Provider: Niles Stovall MD Pt is 69 y/o F with PMH colon CA with mets to liver s/p chemo, radiation and s/p colon resection in 2017 presented to ER with c/o abdominal pain started yesterday. Pt states yesterday started with upper abdominal cramping that worsened and started vomiting and unable to eat. Pain and vomiting continued. Last BM yesterday morning. Reports passing some flatus overnight. Denies fever/chills, diaphoresis, diarrhea, constipation, JAFFE, dizziness, syncope, vision changes, neck pain, CP, SOB, orthopnea, palpitations, cough, sore throat, choking, otalgia, rhinorrhea, paresthesias, weakness, extremity weakness, extremity edema, rashes, urinary symptoms. Denies history SBO in past. Denies recent travel, ill contacts. In ER found to have SBO on CT scan abd/pelvis. NG tube placed. Pt being admitted for further assessment. Allergies Allergy/AdvReac Type Severity Reaction Status Date / Time Penicillins Allergy Unknown Rash Verified 10/30/19 05:33 Past Med/Surg History Medical History Rectal cancer (Resolved 01/25/16) "STAGING: Rectum, adenocarcinoma, [id number], stage IV with oligometastatic disease to the liver TREATMENT: 1. Chemotherapy - 4 cycles FOLFOX - Dr. Garsia - Last Dose - 05/15/2016 2. Status post completion of hypo-fractionated radiation therapy. Completed 06/23/2015 received 2500 cGy in 5 fractions. 3. Status post low anterior resection and resection of hepatic metastatic lesions 06/30/2016 Stage ypT3 ypN0 M1 4. Status post 4 cycles of FOLFIRI completed 12/04/2016 4. Status post ostomy reversal." On 07/21/16 09:38 Muna Beatty wrote "STAGING: Rectum, adenocarcinoma, [id number], stage IV with oligometastatic disease to the liver TREATMENT: 1. Chemotherapy - 4 cycles FOLFOX - Dr. Garsia - Last Dose - 05/15/2016 2. Status post completion of hypo-fractionated radiation therapy. Completed 06/23/2015 received 2500 cGy in 5 fractions. 3. Status post low anterior resection and resection of hepatic metastatic lesions 06/30/2016 Stage ypT3 ypN0 M1" On 06/30/16 11:59 Muna Beatty wrote "STAGING: Rectum, adenocarcinoma, [id number], stage IV with oligometastatic disease to the liver TREATMENT: 1. Chemotherapy - 4 cycles FOLFOX - Dr. Garsia - Last Dose - 05/15/2016 2. Status post completion of hypo-fractionated radiation therapy. Completed 06/23/2015 received 2500 cGy in 5 fractions." On 06/09/16 14:44 Haris Graves wrote "STAGING: Rectum, adenocarcinoma, [id number], stage IV with oligometastatic disease to the liver TREATMENT: 1. Chemotherapy - 4 cycles FOLFOX - Dr. Garsia - Last Dose - 05/15/2016 " Surgical History History of section History of surgery of liver 06/2016 - laparoscopic hepate[place] [facility] [place]ett[place] S/P colon resection 06/2016 - Dr Guthrie [place] [facility] [place] Social History Preferred Language: Luxembourgish Communication Ability: Effective Beliefs That Will Affect Care: None Current Living Situation: Spouse Other Information That Helps Us Care for You: No Feels Safe at Home: Yes Safety Concerns: Feels Safe At This Time Smoking Status: Never smoker Hx Alcohol Use: Yes Alcohol type: wine Hx Substance Use: No Review of Systems Review of Systems: All systems reviewed & are unremarkable except as noted in HPI & below Physical Exam Physical Exam: General: mild distress with nausea, improving with NG tube placement, overweight Head: normocephalic, atraumatic Eyes: PERRL, EOM's intact, conjunctiva non-injected, anicteric ENT: normal inspection external ears, nose, mucous membranes moist Neck: supple, trachea midline Lungs: clear, no respiratory distress, no wheezing/rhonchi/rales CV: RRR, no murmur, no pretibial edema Abd: +healed surgical scars, hypoactive BS, soft, +reported pressure sensation without significant pain to palpation of entire abdomen Ext: no cyanosis, no calf tenderness Neuro: A&O x 3, no focal deficits noted, normal affect Skin: warm, dry Results & Data Results & Data ([facility]) Vital Signs (Past 12 Hours) Vital Signs Temp Pulse Pulse Resp BP BP Pulse Ox 10/30/19 08:00 82 15 177/91 H 99 10/30/19 07:30 85 18 181/84 H 97 10/30/19 07:22 106 H 20 165/97 H 97 10/30/19 07:21 83 17 165/97 H 94 10/30/19 07:00 64 14 10/30/19 06:33 68 22 10/30/19 06:00 73 22 10/30/19 05:58 70 15 177/84 H 10/30/19 05:56 68 14 177/84 H 98 10/30/19 05:30 70 15 10/30/19 05:29 70 14 10/30/19 05:10 36.6 C 69 18 183/79 H 100 Laboratory Results Short CBC 10/30/19 Range/Units 05:51 WBC 16.06 H (4.8-10.8) K/uL Hgb 16.0 (12.0-16.0) g/dL Hct 47.7 H (37-47) % Plt Count 192 (130-400) K/uL BMP 10/30/19 05:51 Sodium 136 Potassium 3.6 Chloride 101 Carbon Dioxide 25 BUN 20 H Creatinine 0.95 Glucose 179 H Calcium 9.4 Liver Function 10/30/19 Range/Units 05:51 Total Bilirubin 0.9 (0.2-1) mg/dl AST 39 H (15-37) U/L ALT 44 (12-78) U/L Alkaline Phosphatase 90 (45-117) U/L Albumin 4.2 (3.4-5.0) gm/dl Urine 10/30/19 Range/Units 05:20 Urine Color Dark Yellow Urine Appearance Cloudy A (Clear) Urine pH 5.5 (4.5-7.5) Ur Specific [place] 1.034 H (1.000-1.030) Urine Protein 2+ H (Negative) Urine Glucose (UA) 2+ H (Negative) Diagnostic Findings CT ABD/PELVIS: IMPRESSION: 1. Findings consistent with a moderate grade small bowel obstruction with transition point within the right lower quadrant, within the distal ileum. Transition point in close proximity to an anastomosis. This may reflect an a nastomotic stricture. Small amount of ascites and mild mesenteric infiltration. Mild gastric distention with a small hiatal hernia. 2. 3.5 x 3.1 cm right hepatic dome partially calcified lesion. This may reflect a treated metastasis and correlation with more recent post therapy imaging is recommended. In the absence of recent prior exams, short-term imaging follow-up is recommended. A few prominent ileocolic lymph nodes can be assessed on follow- up imaging. KUB XRAY: IMPRESSION: Nasogastric tube within the gastric fundus Code Status & VTE Plan VTE Prophylaxis Plan VTE Prophylaxis will be ordered: Yes Supervising Physician Co-Signing Physician Notes I, Dr. Addison Tracey, have seen and examined the patient with physician office administrative assistant and would like to comment on exam that on Physical Exam: General: no acute distress HEENT: presence of NG tube. Heart: regular rate Lungs: clear to auscultation Abdomen: midline scar, no tenderness to palpation Assessment and Plan -small bowel obstruction requiring NG tube. currently with IV fluids with p otassium. will later switch to IV fluids with dextrose to prevent hypoglycemia -monitor for bowel movements -as per patient she has been following with Dr. Waldemar Graves. she denies being on active medications for nay health issues recently and appears to consider her history of cancer which had spread to liver in the past to be in remission -agree with other assessment an plans as documented by physician office administrative assistant
[2019-10-30] MEDS ORDERED: MoRPHine SULFATE 4 MG/ML 1 ML CARP\\VIAL IV PRN (09:19)
[2019-10-30] MEDS ORDERED: ACETAMINOPHEN 1,000 MG/100 ML VIAL IV PRN (09:19)
[2019-10-30] MEDS ORDERED: NSS + 20MEQ KCL 20 MEQ/1,000 ML BAG IV SCH (09:30)
[2019-10-30] MEDS ORDERED: METOCLOPRAMIDE HCL INJ 5 MG/ML 2 ML VIAL IV ONE (09:41)
--- NOTE | 2019-10-30 10:53 | Surgery Consultation ---
Date of Consultation October 30, 2019 Assessment & Plan (1) Small bowel obstruction: pt is a 69 year-old female who was admitted to hospital for SBO, S/P colectomy, IMP: SBO, possible anastomotic structure I agree with conservative treatment first, NPO, IV fluid, IV antibiotic, NG tube, control pain, repeat labs, KUB in am, pt agrees with the plan, will F/U, answered al questions, Supervising Physician Co-Signing Physician Notes I, Dr. Addison Tracey, have seen and examined the patient with physician office assistant and would like to comment on exam that on Physical Exam: General: no acute distress HEENT: presence of NG tube. Heart: regular rate Lungs: clear to auscultation Abdomen: midline scar, no tenderness to palpation Assessment and Plan -small bowel obstruction requiring NG tube. currently with IV fluids with potassium. will later switch to IV fluids with dextrose to prevent hypoglycemia -monitor for bowel movements -as per patient she has been following with Dr. Waldemar Graves. she denies being on active medications for nay health issues recently and appears to consider her history of cancer which had spread to liver in the past to be in remission -agree with other assessment an plans as documented by physician office assistant History of Present Illness Attending Physician: Addison Tracey MD Chief Complaint: Abdominal pain Primary Care Provider: Niles Stovall MD Pt is 69 y/o F with PMH colon CA with mets to liver s/p chemo, radiation and s/p colon resection in 2016 presented to ER with c/o abdominal pain started yesterday. Pt states yesterday started with upper abdominal cramping that worsened and started vomiting and unable to eat. Pain and vomiting continued. Last BM yesterday morning. Reports passing some flatus overnight. Denies fever/chills, diaphoresis, diarrhea, constipation, JAFFE, dizziness, syncope, vision changes, neck pain, CP, SOB, orthopnea, palpitations, cough, sore throat, choking, otalgia, rhinorrhea, paresthesias, weakness, extremity weakness, extremity edema, rashes, urinary symptoms. Denies history SBO in past. Denies recent travel, ill contacts. In ER found to have SBO on CT scan abd/pelvis. NG tube placed. Pt being admitted for further assessment. I ( noah Matta MD ) got a call consult bowel obstruction, I reviewed pt's H/P, labs, CT scan with pt, NG tube placed, Allergies Allergy/AdvReac Type Severity Reaction Status Date / Time Penicillins Allergy Unknown Rash Verified 10/30/19 05:33 Past Med/Surg History Medical History Rectal cancer (Resolved 01/25/16) "STAGING: Rectum, adenocarcinoma, [id number], stage IV with oligometastatic disease to the liver TREATMENT: 1. Chemotherapy - 4 cycles FOLFOX - Dr. Garsia - Last Dose - 05/15/2016 2. Status post completion of hypo-fractionated radiation therapy. Completed 06/23/2015 received 2500 cGy in 5 fractions. 3. Status post low anterior resection and resection of hepatic metastatic lesions 06/30/2016 Stage ypT3 ypN0 M1 4. Status post 4 cycles of FOLFIRI completed 12/04/2016 4. Status post ostomy reversal." On 07/21/16 09:38 Muna Beatty wrote "STAGING: Rectum, adenocarcinoma, [id number], stage IV with oligometastatic disease to the liver TREATMENT: 1. Chemotherapy - 4 cycles FOLFOX - Dr. Garsia - Last Dose - 05/15/2016 2. Status post completion of hypo-fractionated radiation therapy. Completed 06/23/2015 received 2500 cGy in 5 fractions. 3. Status post low anterior resection and resection of hepatic metastatic lesions 06/30/2016 Stage ypT3 ypN0 M1" On 06/30/16 11:59 Muna Beatty wrote "STAGING: Rectum, adenocarcinoma, [id number], stage IV with oligometastatic disease to the liver TREATMENT: 1. Chemotherapy - 4 cycles FOLFOX - Dr. Garsia - Last Dose - 05/15/2016 2. Status post completion of hypo-fractionated radiation therapy. Completed 06/23/2015 received 2500 cGy in 5 fractions." On 06/09/16 14:44 Haris Graves wrote "STAGING: Rectum, adenocarcinoma, [id number], stage IV with oligometastatic disease to the liver TREATMENT: 1. Chemotherapy - 4 cycles FOLFOX - Dr. Garsia - Last Dose - 05/15/2016 " Surgical History History of section History of surgery of liver 06/2016 - laparoscopic hepatectomy partial lobectomy at [facility] [place] by Dr Nettles S/P colon resection 06/2016 - Dr Guthrie at [facility] [place] Social History Preferred Language: Malawian Communication Ability: Effective Beliefs That Will Affect Care: None Current Living Situation: Spouse Other Information That Helps Us Care for You: No Feels Safe at Home: Yes Safety Concerns: Feels Safe At This Time Smoking Status: Never smoker Hx Alcohol Use: Yes Alcohol type: wine Hx Substance Use: No Review of Systems Review of Systems: All systems reviewed & are unremarkable except as noted in HPI & below Allergies Allergy/AdvReac Type Severity Reaction Status Date / Time Penicillins Allergy Unknown Rash Verified 10/30/19 05:33 Patient History Medical History Rectal cancer (Resolved 01/25/16) "STAGING: Rectum, adenocarcinoma, [id number], stage IV with oligometastatic disease to the liver TREATMENT: 1. Chemotherapy - 4 cycles FOLFOX - Dr. Garsia - Last Dose - 05/15/2016 2. Status post completion of hypo-fractionated radiation therapy. Completed 06/23/2015 received 2500 cGy in 5 fractions. 3. Status post low anterior resection and resection of hepatic metastatic lesions 06/30/2016 Stage ypT3 ypN0 M1 4. Status post 4 cycles of FOLFIRI completed 12/04/2016 4. Status post ostomy reversal." On 07/21/16 09:38 Muna Beatty wrote "STAGING: Rectum, adenocarcinoma, [id number], stage IV with oligometastatic disease to the liver TREATMENT: 1. Chemotherapy - 4 cycles FOLFOX - Dr. Garsia - Last Dose - 05/15/2016 2. Status post completion of hypo-fractionated radiation therapy. Completed 06/23/2015 received 2500 cGy in 5 fractions. 3. Status post low anterior resection and resection of hepatic metastatic lesions 06/30/2016 Stage ypT3 ypN0 M1" On 06/30/16 11:59 Muna Beatty wrote "STAGING: Rectum, adenocarcinoma, [id number], stage IV with oligometastatic disease to the liver TREATMENT: 1. Chemotherapy - 4 cycles FOLFOX - Dr. Garsia - Last Dose - 05/15/2016 2. Status post completion of hypo-fractionated radiation therapy. Completed 06/23/2015 received 2500 cGy in 5 fractions." On 06/09/16 14:44 Veeral Graves wrote "STAGING: Rectum, adenocarcinoma, [id number], stage IV with oligometastatic disease to the liver TREATMENT: 1. Chemotherapy - 4 cycles FOLFOX - Dr. Garsia - Last Dose - 05/15/2016 " Surgical History History of section History of surgery of liver 06/2016 - laparoscopic hepatectomy partial lobectomy at [facility] [place] by Dr Nettles S/P colon resection 06/2016 - Dr Guthrie at [facility] [place] Social History Preferred Language: Mal[place]ian Communication Ability: Effective Beliefs That Will Affect Care: None Current Living Situation: Spouse Other Information That Helps Us Care for You: No Feels Safe at Home: Yes Safety Concerns: Feels Safe At This Time Smoking Status: Never smoker Hx Alcohol Use: Yes Alcohol type: wine Hx Substance Use: No Review of Systems Review of Systems: All systems reviewed & are unremarkable except as noted in HPI & below Constitutional: as per Subjective / HPI Eyes: as per Subjective / HPI Ear, Nose, Mouth, Throat: as per Subjective / HPI Respiratory: as per Subjective / HPI Cardiovascular: as per Subjective / HPI Gastrointestinal: as per Subjective / HPI colectomy with liver mass resection for colon cancer in 2017, pt had chemotherapy after surgery Genitourinary: as per Subjective / HPI Musculoskeletal: as per Subjective / HPI Integumentary: as per Subjective / HPI Neurologic: as per Subjective / HPI Psychiatric: as per Subjective / HPI Endocrine: as per Subjective / HPI Hematologic / Lymphatic: as per Subjective / HPI Physical Exam Constitutional: WD/WN, vitals as above well developed and well nourished Eyes: PERRL, conjunctivae normal, anicteric sclerae ENMT: external ear and nose normal, oropharynx normal Neck: trachea midline, no thyromegaly Respiratory: normal respiratory effort, lungs clear to auscultation normal respiratory effort Cardiovascular: RRR, no murmur, no edema Rate/Rhythm: regular rate and regular rhythm Heart Sounds: normal S1 and normal S2 Gastrointestinal (Abdomen): normal bowel sounds, soft, nontender, no hepatosplenomegaly Percussion/Palpation: abdomen soft mild tenderness at lower abdomen, no rebound pain, no distend, BS + Musculoskeletal: no cyanosis or clubbing, extremities motor strength 5/5 Skin: no rashes, warm and dry Neurologic: patellar DTR's 2+ bilat, sensation intact Psychiatric: Orientation: alert and oriented x 3 Results & Data Vital Signs (Past 12 Hours) Vital Signs Temp Pulse Pulse Resp BP BP Pulse Ox 10/30/19 09:36 37.0 C 65 16 172/91 H 97 10/30/19 08:30 67 20 157/92 H 94 10/30/19 08:00 82 15 177/91 H 99 10/30/19 07:30 85 18 181/84 H 97 10/30/19 07:22 106 H 20 165/97 H 97 10/30/19 07:21 83 17 165/97 H 94 10/30/19 07:00 64 14 10/30/19 06:33 68 22 10/30/19 06:00 73 22 10/30/19 05:58 70 15 177/84 H 10/30/19 05:56 68 14 177/84 H 98 10/30/19 05:30 70 15 10/30/19 05:29 70 14 10/30/19 05:10 36.6 C 69 18 183/79 H 100 Laboratory Results Abnormal lab results 10/30/19 10/30/19 10/30/19 Range/Units 05:20 05:51 05:51 WBC 16.06 H (4.8-10.8) K/uL Hct 47.7 H (37-47) % MPV 10.6 H (7.4-10.4) fL Immature Gran # (Auto) 0.03 H (0.00-0.02) K/uL Neut # (Auto) 14.78 H (1.4-6.5) K/uL Lymph # (Auto) 0.79 L (1.2-3.4) K/uL BUN 20 H (7-18) mg/dl BUN/Creatinine Ratio 21.4 H (10-20) Glucose 179 H (70-99) mg/dl AST 39 H (15-37) U/L Total Protein 8.8 H (6.4-8.2) gm/dl Globulin 4.6 H (2.5-4.0) gm/dl Lipase 45 L (73-393) U/L Urine Appearance Cloudy A (Clear) Ur Specific [place] 1.034 H (1.000-1.030) Urine Protein 2+ H (Negative) Urine Glucose (UA) 2+ H (Negative) Urine Ketones 3+ H (Negative) Urine Blood 3+ H (Negative) Urine RBC (Auto) >30 H (0-4) /hpf U Epithel Cells (Auto) >30 H (0-5) /lpf Diagnostic Findings CT OF THE ABDOMEN AND PELVIS WITH CONTRAST CLINICAL HISTORY: Abdominal pain and vomiting. History of colon cancer. COMPARISON STUDY: MRI of the abdomen February 14, 2016. PET/CT February 23, 2016. TECHNIQUE: Following IV administration of 93 mL of Optiray-320, axial images of the abdomen and pelvis were obtained from the lung bases to the proximal femurs. Images were reviewed in the axial, sagittal, and coronal planes. IV contrast was administered without complication. Automated exposure control was utilized for the study. A dose lowering technique was utilized adhering to the principles of ALARA. CT DOSE: 940.92 mGycm FINDINGS: Lung bases are unremarkable. No pneumatosis, free air or portal venous gas is present. Partial right hepatectomy is noted. Note is made of a 3.5 x 3.1 cm right hepatic dome mixed attenuation lesion. This is probably hyperdense and contains calcifications. A small hiatal hernia is present. The spleen, adrenal glands, kidneys and pancreas are unremarkable. Slight prominence of the common bile duct is likely related to cholecystectomy. There is no peripancreatic infiltration. There is no hydronephrosis. The majority of the small bowel is moderately dilated and fluid-filled. There is a transition point within the right lower quadrant, within the distal ileum shown on axial image 335 of 436. There is stool within the upstream small bowel. This is adjacent to a small bowel anastomosis. There is a small amount of ascites. There is mild mesenteric infiltration. The terminal ileum is decompressed. A few prominent ileocolic lymph nodes are noted. These measure up to 7 mm in short axis diameter. No suspicious osseous lesions are present. Postoperative findings at the rectosigmoid junction are noted. IMPRESSION: 1. Findings consistent with a moderate grade small bowel obstruction with transition point within the right lower quadrant, within the distal ileum. Transition point in close proximity to an anastomosis. This may reflect an anastomotic stricture. Small amount of ascites and mild mesenteric infiltration. Mild gastric distention with a small hiatal hernia. 2. 3.5 x 3.1 cm right hepatic dome partially calcified lesion. This may reflect a treated metastasis and correlation with more recent post therapy imaging is recommended. In the absence of recent prior exams, short-term imaging follow-up is recommended. A few prominent ileocolic lymph nodes can be assessed on follow- up imaging.
[2019-10-30] MEDS: CIPROFLOXACIN / D5W 400 MG/200 ML BAG IV SCH ×2 (11:49→23:26)
[2019-10-30] MEDS: D5W AND 1/2NSS 1,000 ML IV SCH (15:06)
[2019-10-30] MEDS: ONDANSETRON INJ 2 MG/ML 2 ML VIAL IV PRN ×2 (15:53→21:56)
[2019-10-31] MEDS: ONDANSETRON INJ 2 MG/ML 2 ML VIAL IV PRN (03:41)
[2019-10-31] MEDS ORDERED: PROMETHAZINE HCL 12.5 MG in SODIUM CHLORIDE 0.9% 50 ML IV STA (06:20)
[2019-10-31] MEDS: D5W AND 1/2NSS 1,000 ML IV SCH (08:16)
[2019-10-31 08:18] LABS: Eosinophils # (auto) 0.01 K/uL (0-0.5); Eosinophils % (auto) 0.2 %; Hematocrit (blood only) 47.6 % (37-47); Hemoglobin 15.9 g/dL (12.0-16.0); Immature Granulocytes # (auto) 0.01 K/uL (0.00-0.02); Immature Granulocytes % (auto) 0.2 %; Lymphocytes # (auto) 1.15 K/uL (1.2-3.4); Lymphocytes % (auto) 17.6 %; Mean Corpuscular Hemoglobin 29.9 pg (25-34); Mean Corpuscular Hgb Conc 33.4 g/dL (32-36); Mean Corpuscular Volume 89.5 fL (80-100); Mean Platelet Volume 11.4 fL (7.4-10.4); Monocytes # (auto) 0.83 K/uL (0.11-0.59); Monocytes % (auto) 12.7 %; Neutrophils # (auto) 4.52 K/uL (1.4-6.5); Neutrophils % (auto) 69.3 %; Platelet Count 192 K/uL (130-400); RDW Coefficient of Variation 13.8 % (11.5-14.5); RDW Standard Deviation 45.1 fL (36.4-46.3); Red Blood Count 5.32 M/uL (4.2-5.4); White Blood Count 6.52 K/uL (4.8-10.8)
--- NOTE | 2019-10-31 08:31 | Hospitalist Progress Note ---
Date of Service October 31, 2019 Assessment & Plan (1) Small bowel obstruction: -Pt is 69 y/o F with PMH colon CA with mets to liver s/p chemo, radiation and s/p colon resection in 2017 presented to ER with c/o abdominal pain with vomiting -In ER pt afebrile, P: 69, R: 18, BP: 183/79, 100% on RA. WBC: 16 -CT ABD/PELVIS: 1. Findings consistent with a moderate grade small bowel obstruction with transition point within the right lower quadrant, within the distal ileum. Transition point in close proximity to an anastomosis. This may reflect an anastomotic stricture. Small amount of ascites and mild mesenteric infiltration. Mild gastric distention with a small hiatal hernia. 2. 3.5 x 3.1 cm right hepatic dome partially calcified lesion. This may reflect a treated metastasis and correlation with more recent post therapy imaging is recommended. In the absence of recent prior exams, short-term imaging follow-up is recommended. A few prominent ileocolic lymph nodes can be assessed on follow- up imaging. -On Ng tube suctioning, IV fluids as D5 1/2 normal saline, patient agreeable to have enema. follow up KUB, monitor the electrolytes and supplement as needed -no fevers to date -General surgery following the patient. Dr Matta started patient on ciprofloxacin starting on 10/30/2019, being continued at this time (2) Rectal cancer: Stage IV cancer -Hx colon CA with mets to liver s/p chemo, radiation and s/p colon resection in 2017. H/O liver partial lobectomy in 2017. Surgeries performed [place] [facility] [place]. -CT Abd/pelvis with 3.5 x 3.1 cm right hepatic dome partially calcified lesion. Hepatic dome lesion was seen on outpatient CT scan in 2019 also -as per patient she has been following with Dr. Waldemar Graves. she denies being on active medications for nay health issues recently and appears to consider her history of cancer which had spread to liver in the past to be in remission DVT Prophylaxis -SCDs for now in case of procedure Full Code as per discussion with pt Follows with Dr Stovall for routine care Admission and Anticipated Discharge Date Admission Date: October 30, 2019 Subjective Overnight, patient had NG tube replaced. patient feels abdomen pain improved but no bowel movements yet. She is agreeable to enema today. no shortness of breath. no chest pain. no vomiting. no dizziness. no headache Review of Systems Review of Systems: All systems reviewed & are unremarkable except as noted in Subjective Physical Exam Constitutional: comfortable Eyes: PERRL, conjunctivae normal, anicteric sclerae ENMT: NG tube present and suctioning Neck: normal visual inspection Respiratory: normal respiratory effort, lungs clear to auscultation Cardiovascular: Rate/Rhythm: + bradycardic Gastrointestinal (Abdomen): Inspection/Auscultation: + abdomen distended Musculoskeletal: Head/Neck/Chest: normocephalic and head atraumatic Neurologic: PERRL, EOMI, accommodation nl, no face palsy, no dysarthria Psychiatric: A+Ox3, euthymic affect Results & Data Results & Data ([facility]) Vital Signs (Past 12 Hours) Vital Signs Temp Pulse Pulse Resp BP Pulse Ox 10/31/19 07:13 37.0 C 62 18 133/78 96 10/31/19 04:09 37 C 79 20 146/78 H 94 10/31/19 00:00 86 10/30/19 23:00 37.1 C 87 19 135/75 91
[2019-10-31 08:45] LABS: Albumin Level 3.2 gm/dl (3.4-5.0); BUN Creatinine Ratio 32.4 (10-20); Calcium 8.4 mg/dl (8.5-10.1); Creatinine Clr Calc Pharmacy 50.3 ml/min; Est GFR (African American) 56.8; Magnesium 2.3 mg/dl (1.8-2.4); Potassium 3.8 mmol/L (3.5-5.1)
[2019-10-31 08:53] LABS: Albumin Globulin Ratio 0.8 (0.9-2); Bilirubin,Total 1.2 mg/dl (0.2-1); Globulin 4.1 gm/dl (2.5-4.0); Phosphorus 2.8 mg/dl (2.5-4.9); Total Protein 7.3 gm/dl (6.4-8.2)
--- NOTE | 2019-10-31 09:46 | XRay Report ---
XR KUB/Abdomen 1 view CLINICAL HISTORY: Small bowel obstruction COMPARISON STUDY: 10/30/2019 FINDINGS: There is contrast within the bladder secondary to a prior CT scan. There is a nasogastric t ube within the stomach. There are mildly dilated mid abdominal small bowel loops. There are postsurgi celia changes identified in the region of the rectosigmoid. IMPRESSION: 1. Mild small bowel dilatation similar to the preceding study 2. Nasogastric tube within the stomach ACT 112: Negative or not required by law. Electronically signed by: Sebastian Baldwin M.D. 10/31/2019 9:45 AM
--- NOTE | 2019-10-31 14:13 | Surgery Progress Note ---
Date of Service October 31, 2019 Assessment & Plan (1) Small bowel obstruction: Hx of stage IV colon cancer s/p chemo, radiation, and resection in 2017 at [facility] [place] Transition zone seen in RLQ at site of prior ileostomy, likely due to adhesions NGT with 450 cc output KUB this morning showing mild SB distention + BM after enema Leukocytosis resolved abdominal pain resolved Plan: Remove NGT and start clear liquids slowly Encouraged ambulating hallway to increase GI motility continue medical management Dr. Comer covering over weekend Dr. Matta was present during my examination and agrees with above plan. Subjective feeling better this morning has soft bowel movement after enema, not passing much gas had xray a few hours ago NGT was likely obstructed by peanuts last night, felt better after placement of new NGT. +nausea today, no vomiting no abdominal pain today Physical Exam Constitutional: WD/WN, vitals as above no acute distress Respiratory: normal respiratory effort Gastrointestinal (Abdomen): Inspection/Auscultation: abdomen normal to inspection; abdomen not distended Percussion/Palpation: abdomen soft; abdomen nontender, no guarding and abdomen not rigid NGT with bilious output Skin: no rashes, warm and dry Psychiatric: A+Ox3, euthymic affect Results & Data Vital Signs (Past 12 Hours) Vital Signs Temp Pulse Pulse Resp BP Pulse Ox 10/31/19 11:02 36.6 C 75 20 144/76 H 96 10/31/19 08:00 73 10/31/19 07:13 37.0 C 62 18 133/78 96 10/31/19 04:09 37 C 79 20 146/78 H 94 Laboratory Results 10/31/19 10/31/19 10/31/19 Range/Units 11:43 07:50 07:50 WBC 6.52 (4.8-10.8) K/uL RBC 5.32 (4.2-5.4) M/uL Hgb 15.9 (12.0-16.0) g/dL Hct 47.6 H (37-47) % MCV 89.5 (80-100) fL MCH 29.9 (25-34) pg MCHC 33.4 (32-36) g/dL RDW Std Deviation 45.1 (36.4-46.3) fL RDW Coeff of Joel 13.8 (11.5-14.5) % Plt Count 192 (130-400) K/uL MPV 11.4 H (7.4-10.4) fL Immature Gran % (Auto) 0.2 % Neut % (Auto) 69.3 % Lymph % (Auto) 17.6 % [facility] % (Auto) 12.7 % Eos % (Auto) 0.2 % Baso % (Auto) 0.0 % Immature Gran # (Auto) 0.01 (0.00-0.02) K/uL Neut # (Auto) 4.52 (1.4-6.5) K/uL Lymph # (Auto) 1.15 L (1.2-3.4) K/uL [facility] # (Auto) 0.83 H (0.11-0.59) K/uL Eos # (Auto) 0.01 (0-0.5) K/uL Baso # (Auto) 0.00 (0-0.2) K/uL Sodium 134 L (136-145) mmol/L Potassium 3.8 (3.5-5.1) mmol/L Chloride 102 (98-107) mmol/L Carbon Dioxide 26 (21-32) mmol/L Anion Gap 6.0 (3-11) BUN 37 H D (7-18) mg/dl Creatinine 1.14 (0.6-1.2) mg/dl Est Cr Clr Drug Dosing 50.3 ml/min Est GFR ( Amer) 56.8 Est GFR (Non-Af Amer) 49.0 BUN/Creatinine Ratio 32.4 H (10-20) Glucose 149 H (70-99) mg/dl POC Glucose 154 H (70-99) mg/dl Calcium 8.4 L (8.5-10.1) mg/dl Phosphorus 2.8 (2.5-4.9) mg/dl Magnesium 2.3 (1.8-2.4) mg/dl Total Bilirubin 1.2 H (0.2-1) mg/dl AST 22 (15-37) U/L ALT 36 (12-78) U/L Alkaline Phosphatase 69 (45-117) U/L Total Protein 7.3 (6.4-8.2) gm/dl Albumin 3.2 L (3.4-5.0) gm/dl Globulin 4.1 H (2.5-4.0) gm/dl Albumin/Globulin Ratio 0.8 L (0.9-2) 10/31/19 10/30/19 10/30/19 Range/Units 05:51 23:27 17:48 WBC (4.8-10.8) K/uL RBC (4.2-5.4) M/uL Hgb (12.0-16.0) g/dL Hct (37-47) % MCV (80-100) fL MCH (25-34) pg MCHC (32-36) g/dL RDW Std Deviation (36.4-46.3) fL RDW Coeff of Joel (11.5-14.5) % Plt Count (130-400) K/uL MPV (7.4-10.4) fL Immature Gran % (Auto) % Neut % (Auto) % Lymph % (Auto) % [facility] % (Auto) % Eos % (Auto) % Baso % (Auto) % Immature Gran # (Auto) (0.00-0.02) K/uL Neut # (Auto) (1.4-6.5) K/uL Lymph # (Auto) (1.2-3.4) K/uL [facility] # (Auto) (0.11-0.59) K/uL Eos # (Auto) (0-0.5) K/uL Baso # (Auto) (0-0.2) K/uL Sodium (136-145) mmol/L Potassium (3.5-5.1) mmol/L Chloride (98-107) mmol/L Carbon Dioxide (21-32) mmol/L Anion Gap (3-11) BUN (7-18) mg/dl Creatinine (0.6-1.2) mg/dl Est Cr Clr Drug Dosing ml/min Est GFR ( Amer) Est GFR (Non-Af Amer) BUN/Creatinine Ratio (10-20) Glucose (70-99) mg/dl POC Glucose 144 H 144 H 156 H (70-99) mg/dl Calcium (8.5-10.1) mg/dl Phosphorus (2.5-4.9) mg/dl Magnesium (1.8-2.4) mg/dl Total Bilirubin (0.2-1) mg/dl AST (15-37) U/L ALT (12-78) U/L Alkaline Phosphatase (45-117) U/L Total Protein (6.4-8.2) gm/dl Albumin (3.4-5.0) gm/dl Globulin (2.5-4.0) gm/dl Albumin/Globulin Ratio (0.9-2) Diagnostic Findings XR KUB/Abdomen 1 view CLINICAL HISTORY: Small bowel obstruction COMPARISON STUDY: 10/30/2019 FINDINGS: There is contrast within the bladder secondary to a prior CT scan. There is a nasogastric tube within the stomach. There are mildly dilated mid abdominal small bowel loops. There are postsurgical changes identified in the r egion of the rectosigmoid. IMPRESSION: 1. Mild small bowel dilatation similar to the preceding study 2. Nasogastric tube within the stomach
[2019-11-01] MEDS ORDERED: ACETAMINOPHEN 325 MG TAB PO PRN (07:02)
[2019-11-01 08:12] LABS: Basophils # (auto) 0.01 K/uL (0-0.2); Basophils % (auto) 0.1 %; Eosinophils # (auto) 0.13 K/uL (0-0.5); Eosinophils % (auto) 1.9 %; Hematocrit (blood only) 41.4 % (37-47); Hemoglobin 13.6 g/dL (12.0-16.0); Immature Granulocytes # (auto) 0.01 K/uL (0.00-0.02); Immature Granulocytes % (auto) 0.1 %; Lymphocytes # (auto) 1.75 K/uL (1.2-3.4); Lymphocytes % (auto) 25.1 %; Mean Corpuscular Hemoglobin 29.6 pg (25-34); Mean Corpuscular Hgb Conc 32.9 g/dL (32-36); Mean Platelet Volume 11.1 fL (7.4-10.4); Monocytes # (auto) 0.76 K/uL (0.11-0.59); Monocytes % (auto) 10.9 %; Neutrophils # (auto) 4.31 K/uL (1.4-6.5); Neutrophils % (auto) 61.9 %; Platelet Count 171 K/uL (130-400); RDW Coefficient of Variation 13.7 % (11.5-14.5); RDW Standard Deviation 45.2 fL (36.4-46.3); White Blood Count 6.97 K/uL (4.8-10.8)
[2019-11-01 08:54] LABS: Albumin Globulin Ratio 0.8 (0.9-2); Albumin Level 2.9 gm/dl (3.4-5.0); BUN Creatinine Ratio 28.7 (10-20); Bilirubin,Total 0.7 mg/dl (0.2-1); Calcium 8.7 mg/dl (8.5-10.1); Creatinine Clr Calc Pharmacy 60.7 ml/min; Est GFR (African American) 71.7; Est GFR (Non-African American) 61.9; Globulin 3.8 gm/dl (2.5-4.0); Total Protein 6.7 gm/dl (6.4-8.2)
[2019-11-01] MEDS ORDERED: SENNA 8.6 MG TAB PO SCH (09:00)
[2019-11-01] MEDS ORDERED: POLYETHYLENE (MIRALAX) 17 GM PACK PO SCH (09:00)
[2019-11-01 09:56] LABS: Potassium 3.5 mmol/L (3.5-5.1)
--- NOTE | 2019-11-01 12:35 | Hospitalist Progress Note ---
Date of Service November 01, 2019 Assessment & Plan (1) Small bowel obstruction: -Pt is 69 y/o F with PMH colon CA with mets to liver s/p chemo, radiation and s/p colon resection in 2017 presented to ER with c/o abdominal pain with vomiting -In ER pt afebrile, P: 69, R: 18, BP: 183/79, 100% on RA. WBC: 16 -CT ABD/PELVIS: 1. Findings consistent with a moderate grade small bowel obstruction with transition point within the right lower quadrant, within the distal ileum. Transition point in close proximity to an anastomosis. This may reflect an anastomotic stricture. Small amount of ascites and mild mesenteric infiltration. Mild gastric distention with a small hiatal hernia. 2. 3.5 x 3.1 cm right hepatic dome partially calcified lesion. This may reflect a treated metastasis and correlation with more recent post therapy imaging is recommended. In the absence of recent prior exams, short-term imaging follow-up is recommended. A few prominent ileocolic lymph nodes can be assessed on follow- up imaging. -after trial of IV fluids and NG tube, general surgery removed NG tube on 10/31/2019 after patient had bowel movement with enema. subsequently patient had more bowel movements. By AM of 11/01/2019, patient tolerated diet and plans to discharge home discharge medication of senna daily sent electronically [facility] [address] [place] [address] to maintain regular bowel movements Patient should follow up with primary care doctor upcoming scheduled appointments 12/03/2019 8:30 AM Provider [address] Department Radiology [address] 12/03/2019 10:30 AM Provider [address] Department Radiology [address] 12/30/2019 11:00 AM Provider Waldemar Graves MD Department Hematology/Oncology [facility] Leukocytosis secondary to dehydration -admission leukocytosis 16 on 10/30/2019, normalized on 10/31/2019 as 6.5 -discussed with Dr. Matta that changes are from dehydration and patient's WBC improved with fluids rather than from IV ciprofloxacin. he allows IV ciprof loxacin to be stopped on 10/31/2019 (2) Rectal cancer: Stage IV cancer Review of cancer history from outpatient oncology notes that patient had rectosigmoid adenocarcinoma with liver metastatic disease, preoperative CEA level around 25 (04/19/2016): - S/P neoadjuvant chemotherapy with modified FOLFOX 6 x4 - S/P hypo-fractionated RT total 2500 cGy in 5 fractions (no concomitant chemotherapy at that time) ,completed on 06/23/2016. -S/P resection of primary tumor as well as resection liver lesions. -underwent reversal of the ileostomy on 09/06/2016. -She then received 4 cycles of FOLFIRI but then she decided discontinue chemotherapy, last cycle of chemotherapy was received in early December, -Subsequently patient has been following with oncology on tracking CEA levels as cancer marker (last checked CEA level was done in 01/30/19 and the level of 2.5 were in normal reference range) Admission and Anticipated Discharge Date Admission Date: October 30, 2019 Subjective general surgery removed NG tube on 10/31/2019 after patient had bowel movement with enema. subsequently patient had more bowel movements. By AM of 11/01/2019, patient tolerated diet and plans to discharge home no abdomen pain. no distress. no vomiting. no headache. no dizziness. no chest pain. no shortness of breath. no fevers Review of Systems Review of Systems: All systems reviewed & are unremarkable except as noted in Subjective Physical Exam Constitutional: comfortable Eyes: PERRL, conjunctivae normal, anicteric sclerae ENMT: external ear and nose normal, oropharynx normal Neck: normal visual inspection Respiratory: normal respiratory effort, lungs clear to auscultation Cardiovascular: Rate/Rhythm: + bradycardic Gastrointestinal (Abdomen): normal bowel sounds, soft, nontender, no hepatosplenomegaly Musculoskeletal: Head/Neck/Chest: normocephalic and head atraumatic Neurologic: PERRL, EOMI, accommodation nl, no face palsy, no dysarthria Psychiatric: A+Ox3, euthymic affect Results & Data Results & Data ([facility]) Vital Signs (Past 12 Hours) Vital Signs Temp Pulse Pulse Resp BP Pulse Ox 11/01/19 11:56 36.8 C 72 18 132/73 97 11/01/19 08:00 36.9 C 62 18 139/76 97 11/01/19 02:55 36.7 C 78 19 146/79 H 97 11/01/19 02:07 69
--- NOTE | 2019-11-01 12:49 | Discharge Summary ---
Date of Service November 01, 2019 Admission HPI Per Admitting Provider Pt is 69 y/o F with PMH colon CA with mets to liver s/p chemo, radiation and s/p colon resection in 2016 presented to ER with c/o abdominal pain started yesterday. Pt states yesterday started with upper abdominal cramping that worsened and started vomiting and unable to eat. Pain and vomiting continued. Last BM yesterday morning. Reports passing some flatus overnight. Denies fever/chills, diaphoresis, diarrhea, constipation, JAFFE, dizziness, syncope, vision changes, neck pain, CP, SOB, orthopnea, palpitations, cough, sore throat, choking, otalgia, rhinorrhea, paresthesias, weakness, extremity weakness, extremity edema, rashes, urinary symptoms. Denies history SBO in past. Denies recent travel, ill contacts. In ER found to have SBO on CT scan abd/pelvis. NG tube placed. Pt being admitted for further assessment. Principal Diagnosis Small bowel obstruction (resolved) Leukocytosis secondary to dehydration (resolved) History of stage IV Rectal cancer (rectosigmoid adenocarcinoma with liver metastatic disease) Discharge Exam Constitutional comfortable Eyes PERRL, conjunctivae normal, anicteric sclerae ENMT external ear and nose normal, oropharynx normal Neck normal visual inspection Respiratory normal respiratory effort, lungs clear to auscultation Cardiovascular Rate/Rhythm: + bradycardic Gastrointestinal (Abdomen) normal bowel sounds, soft, nontender, no hepatosplenomegaly Musculoskeletal Head/Neck/Chest: normocephalic and head atraumatic Neurologic PERRL, EOMI, accommodation nl, no face palsy, no dysarthria Psychiatric A+Ox3, euthymic affect Discharge Data Allergies Allergy/AdvReac Type Severity Reaction Status Date / Time Penicillins Allergy Unknown Rash Verified 10/30/19 05:33 Consultations 10/30/19 07:50 ED Decision to Admit Stat 10/30/19 09:19 Consult General Surgery Routine 11/01/19 07:43 Burn CD for patient Stat Ordered Studies 10/30/19 05:27 CT abd pelvis IV con only Stat Hospital Course (1) Small bowel obstruction: -Pt is 69 y/o F with PMH colon CA with mets to liver s/p chemo, radiation and s/p colon resection in 2016 presented to ER with c/o abdominal pain with vomiting -In ER pt afebrile, P: 69, R: 18, BP: 183/79, 100% on RA. WBC: 16 -CT ABD/PELVIS: 1. Findings consistent with a moderate grade small bowel obstruction with transition point within the right lower quadrant, within the distal ileum. Trans ition point in close proximity to an anastomosis. This may reflect an anastomotic stricture. Small amount of ascites and mild mesenteric infiltration. Mild gastric distention with a small hiatal hernia. 2. 3.5 x 3.1 cm right hepatic dome partially calcified lesion. This may reflect a treated metastasis and correlation with more recent post therapy imaging is recommended. In the absence of recent prior exams, short-term imaging follow-up is recommended. A few prominent ileocolic lymph nodes can be assessed on follow- up imaging. -after trial of IV fluids and NG tube, general surgery removed NG tube on 10/31/2019 after patient had bowel movement with enema. subsequently patient had more bowel movements. By AM of 11/01/2019, patient tolerated diet and plans to discharge home discharge medication of senna daily sent electronically [facility] [address] [place] [address] to maintain regular bowel movements Patient should follow up with primary care doctor upcoming scheduled appointments 12/03/2019 8:30 AM Provider [address] Department Radiology [address] 12/03/2019 10:30 AM Provider [address] Department Radiology [address] 12/30/2019 11:00 AM Provider Waldemar Graves MD Department Hematology/Oncology [facility] Leukocytosis secondary to dehydration -admission leukocytosis 16 on 10/30/2019, normalized on 10/31/2019 as 6.5 -discussed with Dr. Matta that changes are from dehydration and patient's WBC improved with fluids rather than from IV ciprofloxacin. he allows IV ciprofloxacin to be stopped on 10/31/2019 (2) Rectal cancer: Stage IV cancer Review of cancer history from outpatient oncology notes that patient had rectosigmoid adenocarcinoma with liver metastatic disease, preoperative CEA level around 25 (04/19/2016): - S/P neoadjuvant chemotherapy with modified FOLFOX 6 x4 - S/P hypo-fractionated RT total 2500 cGy in 5 fractions (no concomitant chemotherapy at that time) ,completed on 06/23/2016. -S/P resection of primary tumor as well as resection liver lesions. -underwent reversal of the ileostomy on 09/06/2016. -She then received 4 cycles of FOLFIRI but then she decided discontinue chemotherapy, last cycle of chemotherapy was received in early December, -Subsequently patient has been following with oncology on tracking CEA levels as cancer marker (last checked CEA level was done in 01/30/19 and the level of 2.5 were in normal reference range) Total Time Total Time Spent Total Time Spent (In Minutes): 40 minutes Total Time Includes: Examination of the Patient, Discharge Planning, Medication Reconciliation and Communication With Other Providers Discharge Plan Discharge Items Patient Disposition: Home - Self-Care Reason For Visit: SBO Discharge Diagnosis: Small bowel obstruction (resolved) Leukocytosis secondary to dehydration (resolved) History of Rectal cancer and Stage IV cancer (rectosigmoid adenocarcinoma with liver metastatic disease) Activity: Resume your previous activity Non-emergency contact: Primary Care Provider Call non-emergency contact if: you have any medication questions Follow-up/Referrals: Niles Stovall MD [Primary Care Provider] - Diet: Regular Addtl Attending Provider Instructions: discharge medication of senna daily sent electronically [facility] [address] [place] [address] to maintain regular bowel movements Patient should follow up with primary care doctor upcoming scheduled appointments 12/03/2019 8:30 AM Provider [address] Department Radiology [address] 12/03/2019 10:30 AM Provider [address] Rad[address] 12/30/2019 11:00 AM Provider Waldemar Graves MD Department Hematology/Oncology [facility] Pending Studies at Discharge: No Stand-Alone Forms: My [employer], Smoking Cessation Medications and DC Order Prescriptions: New sennosides [Senokot] 8.6 mg Tablet 8.6 mg PO QAM 30 Days Qty: 30 RF: 0 Discharge Orders: Discharge Order (Routine); Ordered 11/01/19 Ordered By: Addison Tracey Admission Data Admit Date/Time: 10/30/19 07:50 Attending Provider: Addison Tracey Admit Provider: Addison Tracey Primary Care Provider: Niles Stovall Other Providers: Kirsten Matta ; Addison Tracey Supervising Physician Co-Signing Physician Notes I, Dr. Addison Tracey, have seen and examined the patient with physician surgeon's assistant and would like to comment on exam that on Physical Exam: General: no acute distress HEENT: presence of NG tube. Heart: regular rate Lungs: clear to auscultation Abdomen: midline scar, no tenderness to palpation Assessment and Plan -small bowel obstruction requiring NG tube. currently with IV fluids with potassium. will later switch to IV fluids with dextrose to prevent hypoglycemia -monitor for bowel movements -as per patient she has been following with Dr. Waldemar Graves. she denies being on active medications for nay health issues recently and appears to consider her history of cancer which had spread to liver in the past to be in remission -agree with other assessment an plans as documented by physician surgeon's assistant
== END 2019-11-01 13:24 | disposition home or self-care (01) | DRG 390 ==
LOC: ED 05:07 → 2N 07:50